=== PATIENT | female | born 2000 | race Caucasian/White ===

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

== ENCOUNTER 2018-01-25 16:01 | Outpatient (CLI) | payer OTHER | END 2018-01-25 16:02 | disposition home or self-care (01) | LOC: LAB.R 16:01 | PROVIDERS: ATTEND Nurse Practitioner Obstetrics & Gynecology | DX: R82.998 Other abnormal findings in urine (principal) | CPT/HCPCS: 87086 ==

== ENCOUNTER 2018-06-16 11:53 | Emergency (ER) | payer BC, OTHER ==
[2018-06-16 12:02] VITALS: BP 142/66
--- NOTE | 2018-06-16 12:10 | ED Physician Documentation ---
History of Present Illness - Stated complaint Stated Complaint: EAR PX,MOUTH PX - Chief complaint Chief Complaint: Heent - History obtained from History obtained from: Patient - History of Present Illness Timing: Last night Pain level max: 5 - Additonal information Additional information: Patient is a 17-year-old female with history of cardiac disease presenting with about 1 day of left-sided mouth sore and left ear pain without external ear complaints, ear drainage, sinus pain or pressure, rhinorrhea, sore throat, difficulty breathing, fever, or other complaints. Patient does report history of canker sores. No improving or worsening factors noted to complaints. Review of Systems Constitutional: denies: Fever Ears: reports: Ear pain PD PAST MEDICAL HISTORY - Past Medical History Past Medical History: Yes Cardiovascular: Valve disorder, Other Other Past Medical History: aortic stenosis, mitral valve regurgitation, VSD Closure - Past Surgical History Past Surgical History: Yes Cardiovascular: Other - Present Medications Home Medications: Ambulatory Orders Medication Instructions Recorded Confirmed Azithromycin [Zithromax] 0 mg PO DAILY #6 tablet 03/24/16 Chlorhexidine Gluconate [Peridex] 15 ml MM BID 10 Days #1 mouthwash 06/16/18 - Allergies Allergies/Adverse Reactions: Allergies Allergy/AdvReac Type Severity Reaction Status Date / Time amoxicillin trihydrate * Allergy Hives Verified 03/24/16 10:18 [From Augmentin] potassium clavulanate * Allergy Hives Verified 03/24/16 10:18 [From Augmentin] - Social History Does the pt smoke?: No Smoking Status: Never smoker PD ED PE NORMAL - General General: Alert and oriented X 3, No acute distress, Well developed/nourished - HEENT HEENT: Atraumatic, Moist mucous membranes, Pharynx benign, Dentition benign, Other (External ears unremarkable bilaterally with no evidence of drainage or purulent material in either ear canal. Right TM nonbulging, non-erythematous without effusion. Left TM without effusion and erythema, but slightly bulging. Less than dime sized open wound to left buccal mucosa not along gumline and otherwise uncomplicated and no signs of infection.) - Abdomen Abdomen: Normal bowel sounds - Derm Derm: Normal color, Warm and dry, No rash - Extremities Extremities: No deformity, No tenderness to palpate - Neuro Neuro: Alert and oriented X 3, No motor deficit, No sensory deficit - Psych Psych: Normal mood, Normal affect Results - Vitals Vitals: Vital Signs - 24 hr 06/16/18 11:58 Temperature 36.7 C Heart Rate 85 Respiratory 20 Rate Blood Pressure 142/66 H O2 Saturation 100 Oxygen O2 Source Room air PD MEDICAL DECISION MAKING - ED course Complexity details: considered differential, d/w patient ED course: Most concerning for herpes virus, canker sores, or other lesions, particular infectious, but upon evaluation, do not find evidence of such. No evidence of tooth or gum involvement. Believe it is likely an accidental bite to the buccal mucosa that can be treated with mouthwash and other symptom control. Do not find evidence of otitis externa, mastoiditis, otitis media and do not have my suspicions for sinusitis, pharyngitis, tonsillitis, pneumonia.Left TM is slightly bulging, but does not require antibiotics or other urgent interventions at this time. Discussed supportive cares, return precautions, good oral hygiene and use of mouthwash, as well as follow-up. Patient voiced understanding and is comfortable with discharge plan. Departure - Departure Disposition: 01 Home, Self Care Clinical Impression: Mouth sore, Ear pain, left Condition: Good Follow-Up: Annie Thompson PA [Primary Care Provider] - Within 3 Days Prescriptions: Chlorhexidine Gluconate [Peridex] 15 ml MM BID 10 Days #1 mouthwash Comments: Recommend good oral hygiene, as well as use of medicated mouthwash twice daily as needed for the next 10 days. Also avoid foods that may irritate the sores such as spicy foods, fried foods, or acidic foods. Also recommend other supportive cares including hydration, rest, and follow-up with your primary care physician in next 2-3 days. Return to ED sooner if experience worsening symptoms or other concerns.
== END 2018-06-16 12:53 | disposition home or self-care (01) ==
LOC: ED 11:53
DX: H92.02 Otalgia, left ear (principal); K13.79 Other lesions of oral mucosa
CPT/HCPCS: 99283

== ENCOUNTER 2018-10-24 08:00 | Outpatient (CLI) | payer BC ==
[2018-10-24 20:19] LABS: CANDIDA GROUP DNA NEGATIVE (NEGATIVE); CANDIDA KRUSEI DNA NEGATIVE (NEGATIVE); TRICHOMONAS VAGINALIS DNA NEGATIVE (NEGATIVE)
== END 2018-10-24 23:59 | disposition home or self-care (01) ==
LOC: LAB.R 08:00
PROVIDERS: ATTEND Nurse Practitioner Obstetrics & Gynecology
DX: N76.0 Acute vaginitis (principal)
CPT/HCPCS: 87661; 87801